=== PATIENT | male | born 1970 | race Caucasian/White ===

== ENCOUNTER 2018-05-11 14:40 | Inpatient (IN) | payer MEDICAID ==
[~2018-05-11] VITALS: Ht 182.9 cm; Wt 64.2 kg
[~2018-05-11 14:40] MED LIST: FLUT1BLS INH; MULT400T7 PO; OMEP-110 PO
[2018-05-11 15:28] LABS: ALANINE AMINOTRANSFERASE 27 U/L (12-78); ANION GAP 9 mmol/L (5-15); CALCIUM 8.4 mg/dL (8.5-10.1); CHLORIDE 103 mmol/L (98-107); CREATININE 0.65 mg/dL (0.7-1.3)
[2018-05-11 15:30] LABS: BASOPHILS # (AUTO) 0.05 x10^3/uL (0-0.1); BASOPHILS % (AUTO) 1 % (0-1); EOSINOPHILS # (AUTO) 0.05 x10^3/uL (0-0.4); EOSINOPHILS % (AUTO) 1 % (1-7); LYMPHOCYTES # (AUTO) 1.81 x10^3/uL (1-3.4); LYMPHOCYTES % (AUTO) 23 % (22-44); MD NO; MEAN CORPUSCULAR HEMOGLOBIN 37.5 pg (27.5-34.5); MEAN CORPUSCULAR HGB CONC 34.8 g/dL (33.2-36.2); MEAN CORPUSCULAR VOLUME 107.9 fL (81-97); MEAN PLATELET VOLUME 7.9 fL (7.4-10.4); MONOCYTES # (AUTO) 0.99 x10^3/uL (0.2-0.8); MONOCYTES % (AUTO) 13 % (2-9); NEUTROPHILS % (AUTO) 63 % (42-75); PLATELET COUNT 232 x10^3/uL (130-400); RED BLOOD COUNT 3.28 x10^6/uL (4.38-5.82)
[2018-05-11 15:31] LABS: ALKALINE PHOSPHATASE 68 U/L (45-117); BILIRUBIN,TOTAL 0.5 mg/dL (0.2-1.0)
[2018-05-11 15:41] LABS: INTERNATIONAL NORMALIZED RATIO 0.95 (0.93-1.1); PROTHROMBIN TIME 9.8 Seconds (9.6-11.5)
[2018-05-11] MEDS ORDERED: PANTOPRAZOLE 40 MG IV ONE (16:47)
[2018-05-11] MEDS ORDERED: PANTOPRAZOLE 80 MG in SODIUM CHLORIDE 0.9% 100 ML IV SCH (17:00)
[2018-05-11] MEDS ORDERED: LABETALOL 5MG/ML, 20ML IVPush PRN (17:30)
[2018-05-11] MEDS ORDERED: LORazepam 2 MG/ML, 1ML IVPush PRN (17:30)
[2018-05-11] MEDS ORDERED: ACETAMINOPHEN 325 MG TABLET PO PRN (17:30)
[2018-05-11] MEDS ORDERED: ENALAPRILAT 1.25 MG/ML, 2ML IVPush PRN (17:30)
[2018-05-11] MEDS ORDERED: ONDANSETRON 2MG/ML, 2ML IVPush PRN (17:30)
[2018-05-11] MEDS ORDERED: CHLORDIAZEPOXIDE 25 MG CAPSULE PO PRN (17:30)
[2018-05-11] MEDS: PANTOPRAZOLE 80 MG in SODIUM CHLORIDE 0.9% 100 ML IV SCH (17:30)
[2018-05-11] MEDS ORDERED: PANTOPRAZOLE 40 MG IV IVPush ONE (18:00)
[2018-05-11] MEDS ORDERED: SODIUM CHLORIDE 0.9% 1,000ML IVBOLUS ONE (18:00)
[2018-05-11 18:44] VITALS: BP 123/78
[2018-05-11] MEDS: NICOTINE 21 MG/24 HR PATCH.TD24 TD SCH (19:45)
[2018-05-11 20:00] VITALS: BP 123/73
[2018-05-11] MEDS: GABAPENTIN 100 MG CAPSULE PO SCH (21:12)
[2018-05-11] MEDS: VALPROIC ACID 250 MG CAPSULE PO SCH (21:12)
[2018-05-11] MEDS: NS + 20MEQ KCL 1,000 ML IV SCH (21:12)
[2018-05-12 02:00] VITALS: BP 105/76
[2018-05-12] MEDS: PANTOPRAZOLE 80 MG in SODIUM CHLORIDE 0.9% 100 ML IV SCH ×3 (04:18→23:57)
[2018-05-12 06:06] LABS: ANION GAP 7 mmol/L (5-15); CALCIUM 7.7 mg/dL (8.5-10.1); CHLORIDE 110 mmol/L (98-107); CREATININE 0.65 mg/dL (0.7-1.3)
[2018-05-12 06:10] LABS: MEAN CORPUSCULAR HEMOGLOBIN 38.1 pg (27.5-34.5); MEAN CORPUSCULAR HGB CONC 35.2 g/dL (33.2-36.2); MEAN CORPUSCULAR VOLUME 108.3 fL (81-97); MEAN PLATELET VOLUME 8.2 fL (7.4-10.4); PLATELET COUNT 193 x10^3/uL (130-400); RED BLOOD COUNT 2.83 x10^6/uL (4.38-5.82); RED CELL DISTRIBUTION WIDTH 14.1 % (9.4-14.8)
[2018-05-12] MEDS: GABAPENTIN 100 MG CAPSULE PO SCH ×4 (06:18→20:58)
[2018-05-12] MEDS: NS + 20MEQ KCL 1,000 ML IV SCH ×2 (06:19→17:04)
[2018-05-12 06:48] LABS: BASOPHILS # (AUTO) 0.04 x10^3/uL (0-0.1); BASOPHILS % (AUTO) 1 % (0-1); EOSINOPHILS # (AUTO) 0.09 x10^3/uL (0-0.4); EOSINOPHILS % (AUTO) 2 % (1-7); LYMPHOCYTES # (AUTO) 1.68 x10^3/uL (1-3.4); LYMPHOCYTES % (AUTO) 31 % (22-44); MD SCAN; MONOCYTES # (AUTO) 0.77 x10^3/uL (0.2-0.8); MONOCYTES % (AUTO) 14 % (2-9); NEUTROPHILS # (AUTO) 2.79 x10^3/uL (1.8-6.8); NEUTROPHILS % (AUTO) 52 % (42-75)
[2018-05-12 06:56] VITALS: BP 136/82
[2018-05-12] MEDS: VALPROIC ACID 250 MG CAPSULE PO SCH ×3 (09:22→20:58)
[2018-05-12 12:12] VITALS: BP 123/86
[2018-05-12] MEDS ORDERED: ALBUMIN HUMAN 25% 100 ML IV SCH (15:30)
[2018-05-12] MEDS: NICOTINE 21 MG/24 HR PATCH.TD24 TD SCH (17:04)
[2018-05-12 18:35] VITALS: BP 108/67
[2018-05-13 00:58] VITALS: BP 137/79
[2018-05-13] MEDS: NS + 20MEQ KCL 1,000 ML IV SCH (03:40)
[2018-05-13] MEDS: GABAPENTIN 100 MG CAPSULE PO SCH ×2 (06:07→10:49)
[2018-05-13 06:45] VITALS: BP 145/88
[2018-05-13] MEDS: VALPROIC ACID 250 MG CAPSULE PO SCH (10:49)
[2018-05-13] MEDS ORDERED: PANT20TA2 PO (11:46)
[2018-05-13 12:20] VITALS: BP 132/86
== END 2018-05-13 15:48 | disposition home or self-care (01) | DRG 378 ==
LOC: ED 17:01 → EDIP 17:02 → ED 17:46 → 4WST 18:34
PROVIDERS: ADMIT Hospitalist; ATTEND Hospitalist
DX: K92.2 Gastrointestinal hemorrhage, unspecified (principal); D62 Acute posthemorrhagic anemia; Y90.9 Presence of alcohol in blood, level not specified; R00.0 Tachycardia, unspecified; F10.129 Alcohol abuse with intoxication, unspecified; E87.6 Hypokalemia; F17.210 Nicotine dependence, cigarettes, uncomplicated; Z71.41 Alcohol abuse counseling and surveillance of alcoholic; Z59.0 Homelessness; Z71.6 Tobacco abuse counseling; Z83.3 Family history of diabetes mellitus
CPT/HCPCS: 36415; 74022; 80048; 80053; 80307; 83735; 84100; 84443; 85014; 85018; 85025; 85610; 85730; 86850; 86900; 96361; 96374; 96375; 99285; J3480; C9113; J7030

== ENCOUNTER 2019-03-04 09:11 | Emergency (ER) | payer SELFPAY ==
[~2019-03-04] VITALS: Ht 182.9 cm; Wt 59.0 kg
[~2019-03-04 09:11] MED LIST changes: +PANT20TA2 PO
[2019-03-04 09:32] VITALS: BP 119/75
--- NOTE | 2019-03-04 09:52 | NUR ---
LESIONS ALL OVER BODY THAT HAVE BEEN THERE APPROXIMATELY A MONTH BUT WORSENED ON MONDAY
== END 2019-03-04 10:59 | disposition home or self-care (01) ==
LOC: ED 10:50
DX: R21 Rash and other nonspecific skin eruption (principal)
CPT/HCPCS: 99283

== ENCOUNTER 2019-04-29 22:41 | Inpatient (IN) | payer MEDICAID ==
[~2019-04-29] VITALS: Ht 182.9 cm; Wt 68.7 kg
[2019-05-04 15:07] VITALS: BP 112/73
== END 2019-05-04 17:13 | DRG 871 ==
LOC: ED 23:59 → EDIP 04-30 02:52 → 4WST 04-30 11:18
PROVIDERS: ADMIT Internal Medicine; ATTEND Internal Medicine
PROC: 02HV33Z Insertion of Infusion Device into Superior Vena Cava, Percutaneous Approach (ICD-10-PCS; principal; 2019-05-04)
PROC: B5181ZA Fluoroscopy of Superior Vena Cava using Low Osmolar Contrast, Guidance (ICD-10-PCS; 2019-05-04)
PROC: B548ZZA Ultrasonography of Superior Vena Cava, Guidance (ICD-10-PCS; 2019-05-04)
DX: A40.3 Sepsis due to Streptococcus pneumoniae (principal); J18.1 Lobar pneumonia, unspecified organism; F10.239 Alcohol dependence with withdrawal, unspecified; J44.0 Chronic obstructive pulmonary disease with (acute) lower respiratory infection; E87.6 Hypokalemia; F10.229 Alcohol dependence with intoxication, unspecified; F12.90 Cannabis use, unspecified, uncomplicated; F17.210 Nicotine dependence, cigarettes, uncomplicated; J98.4 Other disorders of lung; N28.9 Disorder of kidney and ureter, unspecified; Y90.6 Blood alcohol level of 120-199 mg/100 ml; Z59.0 Homelessness; N28.1 Cyst of kidney, acquired; R00.0 Tachycardia, unspecified
CPT/HCPCS: 36415; 36573; 71045; 71260; 74178; 76770; 80048; 80202; 80307; 81001; 82040; 83605; 83735; 84100; 84484; 85025; 87040; 87077; 87181; 87205; 93005; 94640; 96365; 96367; 96375; 99285; G0378; J0456; J0696; J3370; Q9967; C1751; J2060; J7030; J7050

== ENCOUNTER 2020-02-03 21:33 | Emergency (ER) | payer MEDICAID ==
[~2020-02-03] VITALS: Ht 182.9 cm; Wt 65.0 kg
[~2020-02-03 21:33] MED LIST changes: +CEFT1FRO2 IV; +GUAI1TBM11 PO; +NICO-486 TD
[2020-02-03 21:49] VITALS: BP 106/84
== END 2020-02-03 23:55 | disposition home or self-care (01) ==
LOC: ED 23:09
DX: L03.114 Cellulitis of left upper limb (principal); L03.113 Cellulitis of right upper limb; J44.9 Chronic obstructive pulmonary disease, unspecified
CPT/HCPCS: 99283

== ENCOUNTER 2020-02-05 20:18 | Emergency (ER) | payer MEDICAID ==
[~2020-02-05] VITALS: Ht 182.9 cm; Wt 59.1 kg
--- NOTE | 2020-02-05 20:32 | NUR ---
ER PA WAS IN TO SEE PT. POC RV'WD WITH PT. PT COOPERATIVE, INTOXICATED. NO ACTIVE BLEEDING.
--- NOTE | 2020-02-05 20:39 | NUR ---
PT TO CT VIA [facility].
[2020-02-05] MEDS ORDERED: NEOSPORIN OINT. PKT 1 PACKET ONE (20:44)
--- NOTE | 2020-02-05 20:47 | NUR ---
TOOK PT BACK W/O CT SCAN. PT CLAIMED HE HAS BED BUGS. CHELSEA NAVA INFORMED.
--- NOTE | 2020-02-05 21:35 | NUR ---
BUG WAS FOUND ON PT BY GIS SOFTWARE ENGINEER WHILE CLEANING PT'S FACE. PT TAKEN TO SHOWER VIA WC PRIOR TO GOING TO CT.
--- NOTE | 2020-02-05 23:12 | NUR ---
PT AMBULATED WITH POKER DEALER.
[2020-02-05 23:33] VITALS: BP 98/61
--- NOTE | 2020-02-05 23:55 | NUR ---
D/C INSTRUCTIONS, MEDS & F/U APPT RV'WD WITH PT. RX GIVEN X2. CAB VOUCHER PROVIDED TO PT TO [employer] PT AMBULATED OUT OF ED WITHOUT DIFFICULTY.
== END 2020-02-06 00:05 | disposition home or self-care (01) ==
LOC: ED 21:20
DX: S00.31XA Abrasion of nose, initial encounter (principal); S00.91XA Abrasion of unspecified part of head, initial encounter; B86 Scabies; H60.502 Unspecified acute noninfective otitis externa, left ear; J44.9 Chronic obstructive pulmonary disease, unspecified; F10.120 Alcohol abuse with intoxication, uncomplicated; W01.0XXA Fall on same level from slipping, tripping and stumbling without subsequent striking against object, initial encounter; Y93.89 Activity, other specified; Y92.488 Other paved roadways as the place of occurrence of the external cause; Y99.8 Other external cause status; Y90.0 Blood alcohol level of less than 20 mg/100 ml
CPT/HCPCS: 70450; 70486; 99285

== ENCOUNTER 2020-03-06 10:13 | Emergency (ER) | payer MEDICAID ==
[~2020-03-06] VITALS: Ht 182.9 cm; Wt 66.0 kg
[2020-03-06 10:20] VITALS: BP 112/75
== END 2020-03-06 11:50 | disposition other institution (70) ==
LOC: ED 11:02
DX: L73.9 Follicular disorder, unspecified (principal); H92.12 Otorrhea, left ear; J44.9 Chronic obstructive pulmonary disease, unspecified; R05 Cough; F17.200 Nicotine dependence, unspecified, uncomplicated
CPT/HCPCS: 99283

== ENCOUNTER 2021-02-19 14:17 | Inpatient (IN) | payer MEDICAID ==
[~2021-02-19] VITALS: Ht 182.9 cm; Wt 73.3 kg
--- NOTE | 2021-02-19 14:24 | NUR ---
RESEARCH QUALITY ASSURANCE SPECIALIST: PT APPEARED TO BE INTOXICATED, PT STATE HE WANTS TO SMOKE OUTSIDE, EXPLAINED TO STAY IN LOBBY SO WE CAN FIND HIM WHEN CALLED TO ROOM
[2021-02-19] MEDS ORDERED: LIDOCAINE-MPF 1%, 5ML INFIL ONE (14:30)
--- NOTE | 2021-02-19 15:29 | NUR ---
PIV PLACED, IVF RUNNING. ABX TO START AFTER BLOOD CX DRAWN. PT CURRENTLY INTOXICATED.
[2021-02-19] MEDS ORDERED: SODIUM CHLORIDE 0.9% 1,000ML IVBOLUS ONE (15:30)
[2021-02-19] MEDS ORDERED: SODIUM CHLORIDE FLUSH 10ML SYR IVF ONE (15:30)
[2021-02-19] MEDS ORDERED: AMPICILLIN/SULBACTAM 3 GM in SODIUM CHLORIDE 0.9% 100 ML IV ONE (15:30)
--- NOTE | 2021-02-19 15:50 | NUR ---
IV ABX STARTED PER NOV. 2 SETS BLOOD CX COLLECTED PRIOR TO ADMIN. PT RESTING ON GURNEY WATCHING TV. FAMILY AT BEDSIDE.
[2021-02-19 16:05] LABS: BASOPHILS % (AUTO) 1 % (0-1); EOSINOPHILS % (AUTO) 1 % (1-7); LYMPHOCYTES % (AUTO) 18 % (22-44); MEAN CORPUSCULAR HEMOGLOBIN 36.3 pg (27.5-34.5); MEAN CORPUSCULAR HGB CONC 34.1 g/dL (33.2-36.2); MEAN PLATELET VOLUME 7.4 fL (7.4-10.4); MONOCYTES % (AUTO) 10 % (2-9); NEUTROPHILS % (AUTO) 70 % (42-75); PLATELET COUNT 263 x10^3/uL (130-400); RED BLOOD COUNT 3.72 x10^6/uL (4.38-5.82); RED CELL DISTRIBUTION WIDTH 14.1 % (9.4-14.8)
[2021-02-19 16:09] LABS: MD NO
[2021-02-19 16:14] LABS: ALBUMIN 2.7 g/dL (3.4-5.0); ANION GAP 10 mmol/L (5-15); CALCIUM 7.9 mg/dL (8.5-10.1); CHLORIDE 107 mmol/L (98-107); CREATININE 0.55 mg/dL (0.7-1.3)
--- NOTE | 2021-02-19 16:21 | NUR ---
ERMD AT BEDSIDE FOR ASSESSMENT.
--- NOTE | 2021-02-19 17:36 | NUR ---
REPORT GIVEN TO NETTIE VALDOVINOS. PT RTG TO ROOM 369. PHARMACY NOTIFIED TO SEND IVF TO FLOOR INSTEAD OF ED.
[2021-02-19] MEDS ORDERED: POTASSIUM CHLORIDE 20 MEQ, MAGNESIUM SULFATE 1 GM, FOLIC ACID 1 MG, THIAMINE 200 MG, MV... IV ONE (18:00)
[2021-02-19 18:22] VITALS: BP 127/66
[2021-02-19] MEDS ORDERED: DOCUSATE 100 MG CAPSULE PO PRN (19:30)
[2021-02-19] MEDS ORDERED: ONDANSETRON 2MG/ML, 2ML IVPush PRN (19:30)
[2021-02-19] MEDS ORDERED: hydrALAzine 20 MG/ML, 1ML IVPush PRN (19:30)
[2021-02-19] MEDS ORDERED: BISACODYL 10 MG SUPP PR PRN (19:30)
[2021-02-19] MEDS ORDERED: ONDANSETRON ODT 4 MG PO PRN (19:30)
[2021-02-19] MEDS ORDERED: POLYETHYLENE GLYCOL 17 GM PACKET PO PRN (19:30)
[2021-02-19] MEDS ORDERED: GABAPENTIN 300 MG CAPSULE PO PRN (19:30)
[2021-02-19] MEDS ORDERED: METHOCARBAMOL 500 MG TABLET PO PRN (19:30)
[2021-02-19] MEDS ORDERED: MORPHINE SULFATE 4 MG/ML, 1ML IVPush PRN (19:30)
[2021-02-19] MEDS ORDERED: VANCOMYCIN PER PHARMACY MC PRN (20:00)
[2021-02-19] MEDS ORDERED: LORazepam 2 MG/ML, 1ML IV PRN ×5 (20:00)
[2021-02-19] MEDS ORDERED: PHARMACOKINETIC CONSULTATION MC ONE (20:00)
[2021-02-19] MEDS ORDERED: PHARMACOKINETIC MONITORING MC PRN (20:00)
[2021-02-19] MEDS ORDERED: VANCOMYCIN 1,600 MG in SODIUM CHLORIDE 0.9% 250 ML IV ONE (20:00)
[2021-02-19] MEDS: SODIUM CHLORIDE 0.9% 1,000 ML IV SCH (20:54)
[2021-02-19] MEDS: LORazepam 1MG TABLET PO SCH (21:00)
[2021-02-19] MEDS: NICOTINE 21 MG/24 HR PATCH.TD24 TD SCH (21:01)
[2021-02-19] MEDS: HEPARIN 5,000 UNITS/ML, 1ML SQ SCH (21:02)
[2021-02-19] MEDS: AMPICILLIN/SULBACTAM 3 GM in SODIUM CHLORIDE 0.9% 100 ML IV SCH (23:11)
[2021-02-20 00:37] VITALS: BP 119/68
[2021-02-20] MEDS: HEPARIN 5,000 UNITS/ML, 1ML SQ SCH ×3 (05:18→20:44)
[2021-02-20] MEDS: AMPICILLIN/SULBACTAM 3 GM in SODIUM CHLORIDE 0.9% 100 ML IV SCH ×4 (05:18→23:01)
[2021-02-20] MEDS: LORazepam 1MG TABLET PO SCH ×4 (05:35→21:00)
[2021-02-20 05:42] LABS: BASOPHILS % (AUTO) 1 % (0-1); EOSINOPHILS % (AUTO) 1 % (1-7); LYMPHOCYTES % (AUTO) 19 % (22-44); MEAN CORPUSCULAR HEMOGLOBIN 36.4 pg (27.5-34.5); MEAN CORPUSCULAR HGB CONC 34.9 g/dL (33.2-36.2); MEAN PLATELET VOLUME 7.6 fL (7.4-10.4); MONOCYTES % (AUTO) 11 % (2-9); NEUTROPHILS % (AUTO) 68 % (42-75); PLATELET COUNT 208 x10^3/uL (130-400); RED BLOOD COUNT 3.11 x10^6/uL (4.38-5.82); RED CELL DISTRIBUTION WIDTH 13.9 % (9.4-14.8)
[2021-02-20 05:43] LABS: MD NO
[2021-02-20 05:50] LABS: CHLORIDE 104 mmol/L (98-107)
[2021-02-20 06:07] LABS: ALANINE AMINOTRANSFERASE 13 U/L (12-78); ALBUMIN 2.5 g/dL (3.4-5.0); ALKALINE PHOSPHATASE 80 U/L (45-117); ANION GAP 8 mmol/L (5-15); BILIRUBIN,TOTAL 0.8 mg/dL (0.2-1.0); CALCIUM 8.1 mg/dL (8.5-10.1); CREATININE 0.58 mg/dL (0.7-1.3); TOTAL PROTEIN 6.3 g/dL (6.4-8.2)
[2021-02-20 06:58] VITALS: BP 149/81
[2021-02-20] MEDS: PANTOPRAZOLE 40MG TABLET PO SCH (08:45)
[2021-02-20] MEDS: MULTIVITAMINS/MINERALS TABLET PO SCH (08:45)
[2021-02-20] MEDS: NICOTINE 21 MG/24 HR PATCH.TD24 TD SCH (08:46)
[2021-02-20] MEDS: OXYcodone IR 5MG TABLET PO PRN (08:54)
[2021-02-20] MEDS: SODIUM CHLORIDE 0.9% 1,000 ML IV SCH (09:07)
[2021-02-20] MEDS: VANCOMYCIN 1,300 MG in SODIUM CHLORIDE 0.9% 250 ML IV SCH ×2 (09:17→20:44)
[2021-02-20] MEDS ORDERED: GADOTERATE 7.5 MMOL/15ML SYR ONE (10:30)
[2021-02-20 11:43] LABS: MICROSCOPIC NOT IND
[2021-02-20 11:49] LABS: AMPHETAMINE SCREEN, URINE Negative (Negative); BARBITURATE SCREEN, URINE Negative (Negative); BENZODIAZEPINE SCREEN, URINE Negative (Negative); CANNABINOID SCREEN, URINE Negative (Negative); COCAINE SCREEN, URINE Negative (Negative); METHADONE SCREEN, URINE Negative (Negative); OPIATE SCREEN, URINE Negative (Negative)
[2021-02-20 14:11] VITALS: BP 135/72
[2021-02-20 19:37] VITALS: BP 133/74
[2021-02-20] MEDS ORDERED: OMNIPAQUE 350 MG/ML, 100ML BOTTLE ONE (23:23)
[2021-02-21 01:02] VITALS: BP 144/73
[2021-02-21] MEDS: ACETAMINOPHEN 325 MG TABLET PO PRN (01:53)
[2021-02-21] MEDS: AMPICILLIN/SULBACTAM 3 GM in SODIUM CHLORIDE 0.9% 100 ML IV SCH ×4 (04:40→22:51)
[2021-02-21] MEDS: SODIUM CHLORIDE 0.9% 1,000 ML IV SCH (04:40)
[2021-02-21] MEDS: HEPARIN 5,000 UNITS/ML, 1ML SQ SCH ×3 (04:40→21:04)
[2021-02-21] MEDS: LORazepam 1MG TABLET PO SCH ×4 (06:00→21:00)
[2021-02-21] MEDS: PANTOPRAZOLE 40MG TABLET PO SCH (08:53)
[2021-02-21] MEDS: MULTIVITAMINS/MINERALS TABLET PO SCH (08:53)
[2021-02-21] MEDS: THIAMINE 100 MG in DEXTROSE 5% 50 ML IVPB SCH (08:53)
[2021-02-21] MEDS: NICOTINE 21 MG/24 HR PATCH.TD24 TD SCH (08:59)
[2021-02-21] MEDS: VANCOMYCIN 1,300 MG in SODIUM CHLORIDE 0.9% 250 ML IV SCH ×2 (09:30→21:04)
[2021-02-21 10:16] LABS: BASOPHILS % (AUTO) 1 % (0-1); EOSINOPHILS % (AUTO) 2 % (1-7); LYMPHOCYTES % (AUTO) 27 % (22-44); MEAN CORPUSCULAR HEMOGLOBIN 36.8 pg (27.5-34.5); MEAN CORPUSCULAR HGB CONC 34.8 g/dL (33.2-36.2); MEAN PLATELET VOLUME 7.6 fL (7.4-10.4); MONOCYTES % (AUTO) 14 % (2-9); NEUTROPHILS % (AUTO) 55 % (42-75); PLATELET COUNT 197 x10^3/uL (130-400); RED BLOOD COUNT 3.13 x10^6/uL (4.38-5.82); RED CELL DISTRIBUTION WIDTH 14.1 % (9.4-14.8)
[2021-02-21 10:18] LABS: MD NO
[2021-02-21 10:23] LABS: ANION GAP 9 mmol/L (5-15); CALCIUM 8.2 mg/dL (8.5-10.1); CHLORIDE 105 mmol/L (98-107); CREATININE 0.62 mg/dL (0.7-1.3)
[2021-02-21 14:25] VITALS: BP 123/68
[2021-02-21 18:40] VITALS: BP 134/85
[2021-02-22 00:36] VITALS: BP 152/80
[2021-02-22] MEDS: SODIUM CHLORIDE 0.9% 1,000 ML IV SCH ×2 (01:14→20:53)
[2021-02-22] MEDS: ACETAMINOPHEN 325 MG TABLET PO PRN (02:54)
[2021-02-22] MEDS: AMPICILLIN/SULBACTAM 3 GM in SODIUM CHLORIDE 0.9% 100 ML IV SCH ×4 (05:19→22:50)
[2021-02-22] MEDS: HEPARIN 5,000 UNITS/ML, 1ML SQ SCH ×3 (05:19→20:53)
[2021-02-22] MEDS: LORazepam 1MG TABLET PO SCH ×4 (05:48→20:54)
[2021-02-22 05:53] LABS: BASOPHILS % (AUTO) 1 % (0-1); EOSINOPHILS % (AUTO) 2 % (1-7); LYMPHOCYTES % (AUTO) 26 % (22-44); MEAN CORPUSCULAR HEMOGLOBIN 36.7 pg (27.5-34.5); MEAN CORPUSCULAR HGB CONC 34.8 g/dL (33.2-36.2); MEAN PLATELET VOLUME 8.1 fL (7.4-10.4); MONOCYTES % (AUTO) 12 % (2-9); NEUTROPHILS % (AUTO) 58 % (42-75); PLATELET COUNT 185 x10^3/uL (130-400); RED CELL DISTRIBUTION WIDTH 14.3 % (9.4-14.8)
[2021-02-22 06:06] LABS: CHLORIDE 107 mmol/L (98-107)
[2021-02-22 06:10] LABS: ALANINE AMINOTRANSFERASE 19 U/L (12-78); ALBUMIN 2.5 g/dL (3.4-5.0); ALKALINE PHOSPHATASE 84 U/L (45-117); ANION GAP 7 mmol/L (5-15); BILIRUBIN,TOTAL 0.4 mg/dL (0.2-1.0); CALCIUM 8.8 mg/dL (8.5-10.1); CREATININE 0.66 mg/dL (0.7-1.3); TOTAL PROTEIN 6.3 g/dL (6.4-8.2)
[2021-02-22 06:43] LABS: MD SCAN
[2021-02-22 07:08] VITALS: BP 165/89
[2021-02-22] MEDS: MULTIVITAMINS/MINERALS TABLET PO SCH (09:03)
[2021-02-22] MEDS: PANTOPRAZOLE 40MG TABLET PO SCH (09:03)
[2021-02-22] MEDS: NICOTINE 21 MG/24 HR PATCH.TD24 TD SCH (09:03)
[2021-02-22] MEDS: VANCOMYCIN 1,300 MG in SODIUM CHLORIDE 0.9% 250 ML IV SCH ×2 (09:04→20:54)
[2021-02-22] MEDS: THIAMINE 100 MG in DEXTROSE 5% 50 ML IVPB SCH (11:37)
[2021-02-22 13:56] VITALS: BP 144/83
[2021-02-22 18:48] VITALS: BP 125/83
[2021-02-23 00:44] VITALS: BP 152/86
[2021-02-23] MEDS: AMPICILLIN/SULBACTAM 3 GM in SODIUM CHLORIDE 0.9% 100 ML IV SCH ×2 (04:55→11:56)
[2021-02-23] MEDS: HEPARIN 5,000 UNITS/ML, 1ML SQ SCH ×2 (04:55→13:00)
[2021-02-23] MEDS: LORazepam 1MG TABLET PO SCH ×2 (05:59→10:54)
[2021-02-23] MEDS: OXYcodone IR 5MG TABLET PO PRN (07:59)
[2021-02-23] MEDS: PANTOPRAZOLE 40MG TABLET PO SCH (07:59)
[2021-02-23 08:10] VITALS: BP 130/82
[2021-02-23] MEDS: VANCOMYCIN 1,300 MG in SODIUM CHLORIDE 0.9% 250 ML IV SCH (09:05)
[2021-02-23] MEDS: NICOTINE 21 MG/24 HR PATCH.TD24 TD SCH (09:06)
[2021-02-23] MEDS: MULTIVITAMINS/MINERALS TABLET PO SCH (09:06)
[2021-02-23] MEDS: THIAMINE 100 MG in DEXTROSE 5% 50 ML IVPB SCH (10:57)
[2021-02-23] MEDS ORDERED: IBUP-1221 PO (11:57)
[2021-02-23] MEDS ORDERED: AMOX1TAB64 PO (11:57)
[2021-02-23] MEDS: SODIUM CHLORIDE 0.9% 1,000 ML IV SCH (12:00)
[2021-02-23 15:01] VITALS: BP 142/83
== END 2021-02-23 15:50 | disposition home or self-care (01) | DRG 603 ==
LOC: ED 17:41 → ORIP 17:49 → 3N 17:53 → DCLOUNGE 02-23 15:44
PROVIDERS: ADMIT Internal Medicine; ATTEND Internal Medicine
DX: L03.113 Cellulitis of right upper limb (principal); F10.231 Alcohol dependence with withdrawal delirium; M86.9 Osteomyelitis, unspecified; F17.210 Nicotine dependence, cigarettes, uncomplicated; F15.90 Other stimulant use, unspecified, uncomplicated; F12.90 Cannabis use, unspecified, uncomplicated; F10.229 Alcohol dependence with intoxication, unspecified; H91.91 Unspecified hearing loss, right ear; J44.9 Chronic obstructive pulmonary disease, unspecified; Z87.11 Personal history of peptic ulcer disease; Z87.01 Personal history of pneumonia (recurrent); Z91.19 Patient's noncompliance with other medical treatment and regimen
CPT/HCPCS: 36415; 71046; 71260; 74178; 80048; 80053; 80202; 80307; 80320; 81003; 82040; 83036; 83605; 83735; 84100; 84443; 85025; 86592; 87040; 87070; 87077; 87147; 87186; 87205; 96365; 99285; G0378; J0295; J1644; J3370; J3411; J3475; J3480; J7070; Q9967; A9575; G0480; J7030; J7050